=== PATIENT | female | born 1965 | race Caucasian/White ===

== ENCOUNTER → 2018-03-09 | Outpatient (CLI) | payer OTHER ==
[~2018-03-09] MED LIST: ASPIRIN325 PO; BUTRANS1 EAC2 TD; CELEBREX 200 M200 M1 PO; COMBIPATCH TD; IBUPROFEN 800800 M1 PO; IBUPROFEN200 MG PO; LIDODERM 5%1 PATCH TOP; NAPROSYN500 MG PO; NORCO 10-325 T1 EACH PO; PREDNISONE 20 M20 MG PO; SKELAXIN 800 M800 M1 PO; TYLENOL325 MG PO; VICODIN 5-3001 EACH PO
== END ==
LOC: M.CT 01-30 13:15
DX: Z13.6 Encounter for screening for cardiovascular disorders (principal)